=== PATIENT | male | born 1960 | race Caucasian/White ===

== ENCOUNTER → 2016-06-11 | Outpatient (CLI) | payer MEDICAID ==
[~2016-06-11] MED LIST: CELEXA40 MG PO; COLESTIPOL HYDRO1 GM PO; KEPPRA 500 MG500 MG PO; LISINOPRIL 20MG20 MG PO; METFORMIN500 MG PO; OMEPRAZOLE40 MG PO; TRAZODONE 50MG50 MG PO; VENLAFAXINE HCL75 M1 PO
== END ==
LOC: RAD 16:07
DX: M54.5 Low back pain (principal)

== ENCOUNTER → 2016-07-30 | Outpatient (CLI) | payer MEDICAID ==
--- NOTE | 2016-07-30 16:28 | RADIOLOGY REPORT PS360 ---
MRI-L-SPINE W/O, MRI-3D RENDERING/MYELOGRAM HISTORY: Low back pain worsening low back pain with bilateral leg burning LOW BACK PAIN ORDERING PHYSICIAN: James Reyes MD PATIENT AGE: 55 years COMPARISON: None TECHNIQUE: Standard multiplanar multiecho sequences are performed without contrast. 3-D MIP and myelographic images are also rendered and reviewed FINDINGS: There is normal alignment. The spinal cord ends at the L1-L2 level. L1-L2 and L2-L3 have an unremarkable appearance. Minimal bulging disc at L3-L4 and L4-L5. L5-S1 has an unremarkable appearance. No significant facet hypertrophic change evident. Minimal bilateral lateral recess narrowing at L3-L4 and L4-L5 bulging disc. IMPRESSION: 1. No disc herniation or canal stenosis. 2. Mild bulging disc at L3-L4 and L4-L5 with minimal bilateral lateral recess narrowing. 3. Otherwise negative MRI of the lumbar spine
== END ==
LOC: RAD 09:56
DX: M54.5 Low back pain (principal)